=== PATIENT | male | born 1985 | race Caucasian/White ===

== ENCOUNTER 2019-08-16 18:16 | Emergency (ER) | payer MEDICAID, SELFPAY ==
[~2019-08-16] VITALS: Ht 172.7 cm; Wt 70.3 kg
[2019-08-16 18:17] VITALS: Ht 172.7 cm; Wt 70.3 kg
[2019-08-16 20:11] VITALS: BP 150/91
== END 2019-08-16 20:11 | disposition home or self-care (01) ==
LOC: ED 18:16
DX: R05 Cough (principal); R06.02 Shortness of breath; I10 Essential (primary) hypertension; F17.210 Nicotine dependence, cigarettes, uncomplicated; Z20.828 Contact with and (suspected) exposure to other viral communicable diseases
CPT/HCPCS: Q0092; U0003-CS